=== PATIENT | female | born 1985 | race Caucasian/White ===

== ENCOUNTER 2017-06-22 15:22 | Outpatient (CLI) | payer OTHER ==
[~2017-06-22 15:22] MED LIST: GILTUSS TR TAB1 EACH PO; ORPH100T PO; ZYRTEC10 MG PO
== END 2017-06-22 15:32 | disposition home or self-care (01) ==
LOC: RAD 15:22
DX: M25.571 Pain in right ankle and joints of right foot (principal)

== ENCOUNTER 2017-06-22 15:25 | Outpatient (CLI) | payer OTHER | END 2017-06-22 15:37 | disposition home or self-care (01) | LOC: SONOGRAMA 15:25 | DX: M25.571 Pain in right ankle and joints of right foot (principal) ==

== ENCOUNTER 2017-12-27 11:38 | Outpatient (CLI) | payer OTHER | END 2017-12-27 17:00 | disposition home or self-care (01) | LOC: MRI 11:38 | DX: M25.571 Pain in right ankle and joints of right foot (principal) | CPT/HCPCS: 73721 ==

== ENCOUNTER → 2018-11-22 12:17 | Outpatient (CLI) | payer OTHER | END | disposition home or self-care (01) | LOC: LAB 12:17 | DX: J11.1 Influenza due to unidentified influenza virus with other respiratory manifestations (principal); A49.3 Mycoplasma infection, unspecified site ==

== ENCOUNTER 2019-02-20 13:06 | Outpatient (CLI) | payer OTHER | END 2019-02-20 13:48 | disposition home or self-care (01) | LOC: RAD 13:06 | DX: M72.2 Plantar fascial fibromatosis (principal) ==

== ENCOUNTER → 2019-06-15 16:33 | Outpatient (CLI) | payer OTHER | END | disposition home or self-care (01) | LOC: LAB 16:33 | DX: J11.1 Influenza due to unidentified influenza virus with other respiratory manifestations (principal) ==

== ENCOUNTER 2019-08-31 07:47 | Outpatient (CLI) | payer OTHER | END 2019-08-31 07:55 | disposition home or self-care (01) | LOC: LAB 07:47 | DX: I10 Essential (primary) hypertension (principal); N39.0 Urinary tract infection, site not specified; E78.49 Other hyperlipidemia; E06.9 Thyroiditis, unspecified; E55.9 Vitamin D deficiency, unspecified; E16.1 Other hypoglycemia; N91.0 Primary amenorrhea ==

== ENCOUNTER → 2020-03-05 07:00 | Outpatient (CLI) | payer OTHER | END | disposition home or self-care (01) | LOC: PPH VACUNA 07:00 | DX: Z23 Encounter for immunization (principal) ==

== ENCOUNTER 2020-04-22 07:20 | Outpatient (CLI) | payer OTHER | END 2020-04-22 07:24 | disposition home or self-care (01) | LOC: MRI 07:20 | PROVIDERS: ATTEND General Practice | DX: M62.838 Other muscle spasm (principal); M54.5 Low back pain; M54.2 Cervicalgia | CPT/HCPCS: 72142 ==

== ENCOUNTER → 2021-02-25 08:34 | Outpatient (CLI) | payer OTHER | END | disposition home or self-care (01) | LOC: LAB 08:34 | PROVIDERS: ATTEND Radiology Diagnostic Radiology | DX: Z20.818 Contact with and (suspected) exposure to other bacterial communicable diseases (principal) ==

== ENCOUNTER 2021-03-10 08:00 | Outpatient (CLI) | payer OTHER | END 2021-03-10 08:30 | disposition home or self-care (01) | LOC: PPH VACUNA 08:00 | PROVIDERS: ATTEND Emergency Medicine Pediatric Emergency Medicine | DX: Z23 Encounter for immunization (principal) ==

== ENCOUNTER → 2021-03-24 09:31 | Outpatient (CLI) | payer OTHER | END | disposition home or self-care (01) | LOC: LAB 09:31 | PROVIDERS: ATTEND Radiology Diagnostic Radiology | DX: Z02.1 Encounter for pre-employment examination (principal) ==

== ENCOUNTER 2021-09-22 07:22 | Outpatient (CLI) | payer OTHER | END 2021-09-22 07:31 | disposition home or self-care (01) | LOC: LAB 07:22 | DX: R73.01 Impaired fasting glucose (principal); E78.00 Pure hypercholesterolemia, unspecified; D50.0 Iron deficiency anemia secondary to blood loss (chronic); E03.8 Other specified hypothyroidism; M81.0 Age-related osteoporosis without current pathological fracture; E55.9 Vitamin D deficiency, unspecified; R30.0 Dysuria; A64 Unspecified sexually transmitted disease; R74.8 Abnormal levels of other serum enzymes; B20 Human immunodeficiency virus [HIV] disease ==

== ENCOUNTER 2021-09-29 08:21 | Outpatient (CLI) | payer OTHER | END 2021-09-29 08:30 | disposition home or self-care (01) | LOC: MAMO-SONO 08:21 | PROVIDERS: ATTEND Obstetrics & Gynecology | DX: N64.4 Mastodynia (principal) ==

== ENCOUNTER 2021-10-03 10:01 | Outpatient (CLI) | payer OTHER | END 2021-10-03 15:00 | disposition home or self-care (01) | LOC: LAB 10:01 | PROVIDERS: ATTEND Emergency Medicine | DX: U07.1 COVID-19 (principal) ==

== ENCOUNTER 2021-10-03 12:55 | Outpatient (CLI) | payer OTHER | END 2021-10-03 14:11 | disposition home or self-care (01) | LOC: ASH CLINIC 12:55 | PROVIDERS: ATTEND General Practice | DX: U07.1 COVID-19 (principal); Z23 Encounter for immunization ==

== ENCOUNTER 2022-02-25 08:00 | Outpatient (CLI) | payer OTHER | END 2022-02-25 08:05 | disposition home or self-care (01) | LOC: PPH VACUNA 08:00 | PROVIDERS: ATTEND Emergency Medicine Pediatric Emergency Medicine | DX: Z23 Encounter for immunization (principal) ==

== ENCOUNTER → 2023-02-11 | Outpatient (CLI) | payer OTHER | END | disposition home or self-care (01) | LOC: PPH VACUNA | PROVIDERS: ATTEND Emergency Medicine Pediatric Emergency Medicine | DX: Z23 Encounter for immunization (principal) ==

== ENCOUNTER → 2023-12-14 15:27 | Outpatient (CLI) | payer OTHER ==
[2023-12-17 13:06] LABS: HSV I IGG TYPE SPECIFIC < 0.91 index (0.00-0.90)
== END | disposition home or self-care (01) ==
LOC: LAB 15:27
PROVIDERS: ATTEND Obstetrics & Gynecology
DX: A60.04 Herpesviral vulvovaginitis (principal)

== ENCOUNTER 2024-04-17 13:30 | Outpatient (CLI) | payer OTHER | END 2024-04-17 13:40 | disposition home or self-care (01) | LOC: PPH VACUNA 13:30 | PROVIDERS: ATTEND Emergency Medicine Pediatric Emergency Medicine | DX: Z23 Encounter for immunization (principal) ==

== ENCOUNTER 2024-05-18 10:10 | Outpatient (CLI) | payer OTHER | END 2024-05-18 10:14 | disposition home or self-care (01) | LOC: MAMO-SONO 10:10 | PROVIDERS: ATTEND Surgery | DX: Z12.31 Encounter for screening mammogram for malignant neoplasm of breast (principal) ==